=== PATIENT | male | born 1995 | race Caucasian/White ===

== ENCOUNTER 2018-11-05 15:02 | Emergency (ER) | payer SELFPAY ==
[~2018-11-05] VITALS: Ht 177.8 cm; Wt 77.1 kg
[2018-11-05 15:10] VITALS: BP_SYST 139
== END 2018-11-05 18:46 | disposition left against medical advice (07) ==
LOC: SED 15:02
DX: Z48.01 Encounter for change or removal of surgical wound dressing (principal); Z53.20 Procedure and treatment not carried out because of patient's decision for unspecified reasons
CPT/HCPCS: 99281; J7030